=== PATIENT | male | born 1990 | race Two or more races ===

== ENCOUNTER 2023-10-11 18:52 | Emergency (ER) | payer SELFPAY ==
[2023-10-11 19:43] LABS: Hematocrit 51.4 % (42.0-52.0); Hemoglobin 16.1 g/dL (14.0-18.0); Mean Corpuscular HGB CONC 31.4 g/dL (32.0-36.0); Mean Corpuscular Hemoglobin 27.9 pg (27.0-31.0); Mean Corpuscular Volume 88.7 fl (78.0-98.0); Mean Platelet Volume 7.1 fL (7.4-10.4); Platelet Count 456 10x3/uL (130-400); RBC Distribution Width 11.8 % (11.5-14.5); Red Blood Cell (RBC) Count 5.79 mill/uL (4.70-6.10); White Blood Cell (WBC) Count 20.4 10x3/uL (4.8-10.8)
[2023-10-11 19:50] LABS: Lymphocytes 11 % (21-51); MDiff Complete? YES; Monocytes 4 % (0-10); Neutrophil 85 % (42-75)
[2023-10-11] MEDS ORDERED: Ondansetron PF 4 MG/2 ML Vial ONE ×2 (19:54→19:56)
[2023-10-11] MEDS ORDERED: Lactated Ringer's 1,000 ML ONE (19:55)
[2023-10-11] MEDS ORDERED: Lactated Ringer's 2,000 ML ONE (19:56)
[2023-10-11] MEDS ORDERED: Famotidine/PF 20 mg/2ml Vial ONE (19:57)
[2023-10-11 20:00] LABS: ALT (SGPT) 24 U/L (8-55); AST (SGOT) 18 U/L (5-34); Albumin 4.4 g/dL (3.5-5.0); Alkaline Phosphatase 100 U/L (40-110); Anion Gap 22 mmol/L (10-20); BUN (Urea Nitrogen) 17 mg/dL (8.9-20.6); Bilirubin, Total 1.3 mg/dL (0.2-1.2); Calc. Creatinine Clearance 0 mL/min (70-130); Calcium 9.9 mg/dL (7.8-10.44); Carbon Dioxide 26 mmol/L (22-29); Chloride 90 mmol/L (98-107); Estimated GFR 96; Globulin 4.7 g/dL (2.4-3.5); Glucose 327 mg/dL (70-105); Potassium 3.7 mmol/L (3.5-5.1); Protein, Total 9.1 g/dL (6.0-8.3); Sodium 134 mmol/L (136-145)
[2023-10-11] MEDS ORDERED: hydrALAZINE 20 MG/ML VIAL ONE (20:49)
[2023-10-11 20:52] LABS: Magnesium 2.3 mg/dL (1.6-2.6)
[2023-10-11] MEDS ORDERED: INSULIN REGULAR IN 0.9 % NACL 100 ML ONE (21:13)
[2023-10-11 21:25] LABS: Base Excess-Venous 4.9 mmol/L (-2.0 to 3.0); CO2 Tension (PvCO2) 39.9 mmHg (42.0-51.0); Calcium, Ionized 1.05 mmol/L (1.15-1.33); Chloride 95 mmol/L (98-107); Hemoglobin - Calc 15.9 g/dL (14.0-18.0); Potassium 3.7 mmol/L (3.5-5.1); Sodium 133 mmol/L (138-145); T. Carbon Dioxide 30.2 mmol/L (22.0-28.0); vO2 Saturation-calc 89.2 % (60.0-85.0)
[2023-10-11] MEDS ORDERED: Labetalol HCl 100 MG/20 ML VIAL ONE ×2 (21:26→23:00)
[2023-10-11] MEDS ORDERED: Prochlorperazine 10 MG/2 ML VIAL ONE (21:26)
[2023-10-11 23:14] LABS: Anion Gap 16 mmol/L (10-20); BUN (Urea Nitrogen) 12 mg/dL (8.9-20.6); Calc. Creatinine Clearance 0 mL/min (70-130); Calcium 9.2 mg/dL (7.8-10.44); Carbon Dioxide 25 mmol/L (22-29); Chloride 95 mmol/L (98-107); Estimated GFR 120; Glucose 252 mg/dL (70-105); Potassium 3.3 mmol/L (3.5-5.1); Sodium 133 mmol/L (136-145)
[2023-10-11 23:16] LABS: Bilirubin Negative (Negative); Blood, Urine Negative (Negative); CAUTI Indications for Culture < 2yrs of age; Clarity Clear (Clear); Glucose, Urine (Dipstick) 500 mg/dL (Negative); Ketone, Urine 80 mg/dL (Negative); Leukocyte Negative (Negative); Nitrite Negative (Negative); Protein, Urine (Dipstick) 30 mg/dL (Neg-Trace); RBC/HPF None Seen HPF (0-3); Squamous Epithelial 0-3 HPF (0-3); Urobilinogen 0.2 mg/dL (Less than 2); WBC/HPF None Seen HPF (0-3)
[2023-10-11 23:17] LABS: Urine Culture Reflex Yes Yes
[2023-10-11] MEDS ORDERED: Potassium Chloride 20 MEQ TAB ONE (23:55)
== END 2023-10-12 00:03 | disposition left against medical advice (07) ==
LOC: MADERS 18:52
DX: E86.0 Dehydration (principal); E11.10 Type 2 diabetes mellitus with ketoacidosis without coma; I10 Essential (primary) hypertension; E80.6 Other disorders of bilirubin metabolism
CPT/HCPCS: 36415; 36416; 80053; 81001; 82010; 82330; 82803; 83605; 83690; 83735; 85025; 87040; 87086; 94760; 96361; 96365; 96366; 96375; 96376; J0360; J0780; J1815; J2405; J3490; J7120

== ENCOUNTER 2023-10-15 14:30 | Emergency (ER) | payer SELFPAY ==
[2023-10-15] MEDS ORDERED: Sodium Chloride 0.9% 1,000 ML ONE ×2 (15:05→15:38)
[2023-10-15] MEDS ORDERED: Ondansetron PF 4 MG/2 ML Vial ONE (15:05)
[2023-10-15] MEDS ORDERED: hydrALAZINE 20 MG/ML VIAL ONE (15:17)
[2023-10-15 15:27] LABS: Anisocytosis SLIGHT = 6-15 cells (100X) (0-5/hpf); Band 5 % (5-11); Hematocrit 52.2 % (42.0-52.0); Hemoglobin 16.3 g/dL (14.0-18.0); Hypochromia SLIGHT = 6-15 cells (100X) (0-5/hpf); Lymphocytes 14 % (21-51); MDiff Complete? YES; Mean Corpuscular HGB CONC 31.2 g/dL (32.0-36.0); Mean Corpuscular Hemoglobin 27.6 pg (27.0-31.0); Mean Corpuscular Volume 88.4 fl (78.0-98.0); Mean Platelet Volume 7.4 fL (7.4-10.4); Monocytes 4 % (0-10); Neutrophil 77 % (42-75); Platelet Adequacy Comment Appears Increased; Platelet Count 439 10x3/uL (130-400); RBC Distribution Width 11.5 % (11.5-14.5); Red Blood Cell (RBC) Count 5.91 mill/uL (4.70-6.10); White Blood Cell (WBC) Count 19.4 10x3/uL (4.8-10.8)
[2023-10-15 15:29] LABS: Base Excess-Venous 7.4 mmol/L (-2.0 to 3.0); Bicarbonate (HCO3v) 30.5 mmol/L (22.0-28.0); CO2 Tension (PvCO2) 36.8 mmHg (42.0-51.0); Calcium, Ionized 1.03 mmol/L (1.15-1.33); Chloride 85 mmol/L (98-107); Hemoglobin - Calc 18.4 g/dL (14.0-18.0); Potassium 3.3 mmol/L (3.5-5.1); Sodium 124 mmol/L (138-145); T. Carbon Dioxide 31.6 mmol/L (22.0-28.0); vO2 Saturation-calc 94.9 % (60.0-85.0)
[2023-10-15 15:30] LABS: ALT (SGPT) 17 U/L (8-55); AST (SGOT) 13 U/L (5-34); Albumin 4.2 g/dL (3.5-5.0); Alkaline Phosphatase 91 U/L (40-110); Anion Gap 23 mmol/L (10-20); BUN (Urea Nitrogen) 15 mg/dL (8.9-20.6); Bilirubin, Total 1.7 mg/dL (0.2-1.2); Calc. Creatinine Clearance 0 mL/min (70-130); Calcium 9.6 mg/dL (7.8-10.44); Carbon Dioxide 25 mmol/L (22-29); Chloride 82 mmol/L (98-107); Estimated GFR 101; Globulin 3.9 g/dL (2.4-3.5); Glucose 335 mg/dL (70-105); Magnesium 2.2 mg/dL (1.6-2.6); Potassium 3.5 mmol/L (3.5-5.1); Protein, Total 8.1 g/dL (6.0-8.3); Sodium 126 mmol/L (136-145)
[2023-10-15] MEDS ORDERED: Insulin Regular, Human 100 UNIT/ML 10 ML VIAL ONE (15:38)
[2023-10-15] MEDS ORDERED: Amlodipine 5 MG TAB ONE (16:12)
[2023-10-15] MEDS ORDERED: NS 0.9% w/ 20 MEQ KCL 1,000 ML ONE (16:35)
[2023-10-15] MEDS ORDERED: INSULIN REGULAR IN 0.9 % NACL 100 ML ONE (16:36)
[2023-10-15] MEDS ORDERED: Labetalol HCl 100 MG/20 ML VIAL ONE (17:09)
[2023-10-15 17:31] LABS: Bilirubin Negative (Negative); Blood, Urine Negative (Negative); Clarity Clear (Clear); Glucose, Urine (Dipstick) 500 mg/dL (Negative); Ketone, Urine > or equal to 80 mg/dL (Negative); Leukocyte Negative (Negative); Nitrite Negative (Negative); Protein, Urine (Dipstick) Negative (Neg-Trace); Specific Gravity, Urine 1.015 (1.005-1.030)
[2023-10-15 17:38] LABS: CAUTI Indications for Culture Dysuria,urgency,freq; RBC/HPF 0-3 HPF (0-3); Squamous Epithelial 0-3 HPF (0-3)
[2023-10-15 17:39] LABS: Amphetamine Not Detected (NotDetected); Bacteria/HPF Rare-Few HPF (None Seen); Barbiturates Screen Not Detected (NotDetected); Benzodiazepine Screen Not Detected (NotDetected); Cocaine Metabolite Screen Not Detected (NotDetected); Methadone Not Detected (NotDetected); Methamphetamine Not Detected (NotDetected); Opiate Screen Not Detected (NotDetected); Oxycodone Screen Not Detected (NotDetected); Phencyclidine (PCP) Not Detected (NotDetected); THC/Cannabinoid Screen Detected (NotDetected); Tricyclic Screen Not Detected (NotDetected); WBC/HPF None Seen HPF (0-3)
[2023-10-15 17:42] LABS: Urine Culture Reflex No No
== END 2023-10-15 18:02 | disposition short-term general hospital (02) ==
LOC: MADERS 14:30
DX: E11.10 Type 2 diabetes mellitus with ketoacidosis without coma (principal); E86.0 Dehydration; I10 Essential (primary) hypertension; R11.2 Nausea with vomiting, unspecified; F17.290 Nicotine dependence, other tobacco product, uncomplicated
CPT/HCPCS: 36416; 80053; 80306; 81001; 82010; 82330; 82435; 82803; 83735; 84132; 84295; 84443; 85014; 85025; 93005; 96361; 96365; 96368; 96375; 96376; J0360; J1815; J2405; J3480; J7030